=== PATIENT | female | born 1950 | race Two or more races ===

== ENCOUNTER 2018-09-19 16:07 | Inpatient (IN) | payer OTHER ==
[~2018-09-19] VITALS: Ht 154.9 cm; Wt 62.6 kg
--- NOTE | 2018-09-19 16:29 | NUR ---
SE RECIBE PACIENTE QUE REFIERE AMAURY RECIBIDO [facility] VERBALIZ[facility]O QUE TENIA LA HEMOGLOBINA EN 7. PACIENTE VERBALIZA SENTIRSE DEEDEE SIN MAREOS Y OTOROS SINTOMAS. PACIENTE REFIERE SENTIRSE NERVIOSA POR LA LECTURA DEL LABORATORIO.
--- NOTE | 2018-09-19 17:35 | NUR ---
SE RECIBE FEMINA ALERTA Y ORIENTAAD POR DARYL ESFERAS. [facility] ORIENTA A PACIENTE SOBRE TRATAMIENTO. FREDIS MUESTRAS DE [facility] ORDENADAS. SE CANALIZA CON AREA DE VENOPUNCION GYPSY DE EDEMA O ENROJECIMIENTO. SE MANTIENE EN OBSERVACION POR CAMBIOS.
[2018-09-20] MEDS ORDERED: NORVASC2.5 M1 PO (11:07)
[2018-09-20] MEDS ORDERED: ZESTORETIC 10-1 EACH PO (11:09)
== END 2018-09-22 18:55 | disposition home or self-care (01) | DRG 812 ==
LOC: ER 16:07 → MEDI 21:25
PROVIDERS: ADMIT Specialist
PROC: 30233N1 Transfusion of Nonautologous Red Blood Cells into Peripheral Vein, Percutaneous Approach (ICD-10-PCS; principal; 2018-09-19)
PROC: 4A12X4Z Monitoring of Cardiac Electrical Activity, External Approach (ICD-10-PCS; 2018-09-19)
PROC: BW21Y0Z Computerized Tomography (CT Scan) of Abdomen and Pelvis using Other Contrast, Unenhanced and Enhanced (ICD-10-PCS; 2018-09-21)
DX: D64.9 Anemia, unspecified (principal); I10 Essential (primary) hypertension

== ENCOUNTER 2021-12-28 18:54 | Inpatient (IN) | payer OTHER ==
[~2021-12-28] VITALS: Ht 152.4 cm; Wt 72.6 kg
[~2021-12-28 18:54] MED LIST: NORVASC2.5 M1 PO; ZESTORETIC 10-1 EACH PO
== END 2022-01-01 17:24 | disposition home or self-care (01) | DRG 179 ==
LOC: ER 18:54 → SEC-K 12-29 13:58 → MEDJ 12-29 13:58
PROVIDERS: ADMIT Specialist; ATTEND Specialist
PROC: 30233N1 Transfusion of Nonautologous Red Blood Cells into Peripheral Vein, Percutaneous Approach (ICD-10-PCS; principal; 2021-12-29)
PROC: 4A12X4Z Monitoring of Cardiac Electrical Activity, External Approach (ICD-10-PCS; 2021-12-30)
DX: U07.1 COVID-19 (principal); R06.02 Shortness of breath; R53.1 Weakness; D64.9 Anemia, unspecified; I10 Essential (primary) hypertension

== ENCOUNTER 2022-08-18 07:23 | Outpatient (CLI) | payer OTHER ==
[~2022-08-18 07:23] MED LIST changes: +ACETAMINOPHEN650 M2 PO; +FLUDROCORTISON0.1 MG PO; +LEVOFLOXACIN500 MG PO; +LISINOPRIL-HCT1 EAC1 PO; +NORVASC2.5 MG PO
== END 2022-08-18 07:25 | disposition home or self-care (01) ==
LOC: LAB 07:23
PROVIDERS: ATTEND Neurological Surgery
DX: I67.1 Cerebral aneurysm, nonruptured (principal)

== ENCOUNTER 2023-02-04 06:23 | Emergency (ER) | payer OTHER ==
[~2023-02-04] VITALS: Ht 154.9 cm; Wt 60.3 kg
[2023-02-04] MEDS ORDERED: ZESTRIL40 M1 (06:39)
[2023-02-04] MEDS ORDERED: IRON325 MG (06:40)
[2023-02-04] MEDS ORDERED: ECOTRIN325 M1 (06:40)
[2023-02-04] MEDS ORDERED: PLAVIX75 MG (06:40)
== END 2023-02-04 08:16 | disposition home or self-care (01) ==
LOC: ER 06:23
DX: I10 Essential (primary) hypertension (principal); Z88.0 Allergy status to penicillin; Z86.718 Personal history of other venous thrombosis and embolism

== ENCOUNTER 2024-09-08 07:06 | Emergency (ER) | payer OTHER ==
[~2024-09-08] VITALS: Ht 162.6 cm; Wt 68.0 kg
[~2024-09-08 07:06] MED LIST changes: +ECOTRIN325 M1; +IRON325 MG; +PLAVIX75 MG; +ZESTRIL40 M1
[2024-09-08] MEDS ORDERED: FAMOTIDINE/PF 20 MG/2 ML VIAL IV ONE (08:45)
[2024-09-08] MEDS ORDERED: ONDANSETRON HCL 2 MG/ML VIAL IV ONE (08:45)
[2024-09-08] MEDS ORDERED: ONDANSETRON HCL 2 MG/ML VIAL ONE (08:49)
[2024-09-08] MEDS ORDERED: FAMOTIDINE/PF 20 MG/2 ML VIAL ONE (08:49)
[2024-09-08 09:39] LABS: HEMATOCRIT 36.4 % (36.0-45.00); HEMOGLOBIN 12.1 g/dL (12.0-15.00); MEAN CELL VOLUME 91.4 fL (80.00-100.00); MEAN CORPUSCULAR HEMOGLOBIN 30.3 pg (27.00-32.0); MEAN CORPUSCULAR HGB CONC 33.1 g/dl (32.0-36.0); PLATELET COUNT 155 K/uL (150-450); RED BLOOD COUNT 3.99 M/uL (4.00-6.00); RED CELL DISTRIBUTION WIDTH 14.3 % (11.5-14.5)
[2024-09-08 10:03] LABS: ALBUMIN 3.4 gm/dL (3.4-5.0); BILIRUBIN TOTAL 0.34 mg/dL (0.3-1.2); CREATININE SERUM 0.58 mg/dL (0.55-1.02); GFR 101.34; GLOBULINA 3.2 G/DL (2.4-3.5); POTASSIUM 4.32 mEq/L (3.5-5.1); TOTAL PROTEIN 6.6 gm/dL (6.4-8.2)
== END 2024-09-08 11:38 | disposition home or self-care (01) ==
LOC: ER 07:06
PROVIDERS: General Practice
DX: K52.9 Noninfective gastroenteritis and colitis, unspecified (principal); R10.9 Unspecified abdominal pain; Z20.822 Contact with and (suspected) exposure to COVID-19; I10 Essential (primary) hypertension; Z88.0 Allergy status to penicillin
CPT/HCPCS: 36415; 96365; 99282; J2405; J3490